=== PATIENT | male | born 2000 | race Caucasian/White ===

== ENCOUNTER 2019-12-30 21:01 | Emergency (ER) | payer OTHER ==
[~2019-12-30] VITALS: Ht 182.9 cm; Wt 90.7 kg
--- OUTSIDE RECORDS SUMMARY | ~2019-12-30 | XMS ---
Demographics + + + | Address | [facility] [address] | | | [place] [address] | + + + | Home Phone | | + + + | Preferred Language | Unknown | + + + | Marital Status | Never | + + + | Hindu Affiliation | Unknown | + + + | Race | White | + + + | Ethnic Group | Not or | + + + Author + + + | Author | [facility] | + + + | Organization | [facility] | + + + | Address | [address] | | | [place] [address] | + + + | Phone | | + + + Care Team Providers + + + + | Care Mortgage Field Inspector Name | Role | Phone | + + + + | Myrna Lee PCP | | + + + + | Myrna Lee | PreferredProvider | | + + + + Allergies and Adverse Reactions + + + + | Name | Reaction | Notes | + + + + | NO KNOWN DRUG ALLERGIES | | | + + + + | 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 Medications +--------+ | Active | +--------+ + + + + + + | Name | Start Date | Estimated | SIG | Comments | | | | Completion Date | | | + + + + + + | Zyrtec 10 mg | | | take 1 tablet | | | oral tablet | | | (10 mg) by oral | | | | | | route once | | | | | | daily | | + + + + + + | Fiber Gummies | | | chew 2 tablets | | | 2.5 gram oral | | | by oral route | | | tablet,chewable | | | daily | | + + + + + + | fluoxetine 10 | 08/18/2016 | 11/16/2016 | take 3 capsules | | | mg oral capsule | | | by oral route | | | | | | qhs for 30 days | | + + + + + + | Concerta 36 mg | 10/31/2016 | | take 1 tablet | | | oral tablet | | | (36 mg) by oral | | | extended | | | route once | | | release 24hr | | | daily in the | | | | | | morning | | + + + + + + +---------+ | | +---------+ + + + + + + | Name | Start Date | Expiration Date | SIG | Comments | + + + + + + | omeprazole 20 | 05/04/2012 | 10/31/2012 | take 1 capsule | | | mg oral | | | by oral route 2 | | | capsule,delayed | | | times a day | | | release(DR/EC) | | | | | + + + + + + | Zithromax 250 | 09/06/2014 | 09/11/2014 | take 2 tablets | | | mg oral tablet | | | (500 mg) by | | | | | | oral route once | | | | | | daily for 1 | | | | | | day then 1 | | | | | | tablet (250 mg) | | | | | | by oral route | | | | | | once daily for | | | | | | 4 days | | + + + + + + | benzonatate 200 | 09/06/2014 | 09/13/2014 | take 1 capsule | | | mg oral | | | (200 mg) by | | | capsule | | | oral route 3 | | | | | | times per day | | | | | | as needed for 7 | | | | | | days | | + + + + + + | prednisone 20 | 09/06/2014 | 09/11/2014 | take 3 tablets | | | mg oral tablet | | | by oral route | | | | | | daily for 5 | | | | | | days | | + + + + + + | lorazepam 1 mg | 11/06/2014 | 11/07/2014 | take 1 tablet | called to pharm | | oral tablet | | | by oral route | | | | | | once take one | | | | | | pill before | | | | | | flying | | + + + + + + | Concerta 18 mg | 08/18/2016 | 09/17/2016 | take 1 tablet | | | oral tablet | | | (18 mg) by oral | | | extended | | | route once | | | release 24hr | | | daily in the | | | | | | morning for two | | | | | | weeks, then | | | | | | take two | | | | | | tablets (36 mg) | | | | | | po qam | | + + + + + + + + | Discontinued | + + + + + + + + | Name | Start Date | Discontinued | SIG | Comments | | | | Date | | | + + + + + + | Zantac 75 75 mg | | 05/04/2012 | take 1 tablet | | | oral tablet | | | (75 mg) by oral | | | | | | route once | | | | | | daily with a | | | | | | glass of water | | + + + + + + Problem List + +--------+ + | Description | Status | Onset | + +--------+ + | Obesity | Active | 02/25/2011 | + +--------+ + | Gastroesophageal reflux | Active | 04/22/2012 | + +--------+ + | ADHD, 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 | 179 | 72. | | 23. | 2.0 | 78. | | | /20 | 45: | | mmH | bpm | rpm | 2 F | | 8 | | 75 | 4 | 3 % | | | 17 | 00 | mmH | g | | | | lbs | in | | kg/ | m2 | | | | | AM | g | | | | | | | | m2 | | | | +-----+-----+-----+-----+-----+-----+-----+-----+-----+----+-----+-----+-----+-----+ | 4/3 | 11: | 108 | 60 | 88 | 30 | 98. | 180 | 72. | | 23. | 2.0 | 79. | 98 | | /20 | 49: | | mmH | bpm | rpm | 3 F | | 75 | | 911 | 472 | 9 % | % | | 17 | 00 | mmH | g | | | | lbs | in | | 4 | | | | | | AM | g | | | | | | | | kg/ | m | | | | | | | | | | | | | | m | | | | +-----+-----+-----+-----+-----+-----+-----+-----+-----+----+-----+-----+-----+-----+ | 2/1 | 11: | 126 | 78 | 80 | 18 | 98. | 175 | | | | | | | | 6/2 | 35: | | mmH | bpm | rpm | 6 F | | | | | | | | | 017 | 00 | mmH | g | | | | lbs | | | | | | | | | AM | g | | | | | | | | | | | | +-----+-----+-----+-----+-----+-----+-----+-----+-----+----+-----+-----+-----+-----+ | 2/7 | 2:2 | 110 | 60 | 83 | 20 | 98. | 177 | 72. | | 23. | 2.0 | 79. | 98 | | /20 | 0:0 | | mmH | bpm | rpm | 4 F | | 5 | | 675 | 265 | 1 % | % | | 17 | 0 | mmH | g | | | | lbs | in | | 3 | | | | | | PM | g | | | | | | | | kg/ | m | | | | | | | | | | | | | | m | | | | +-----+-----+-----+-----+-----+-----+-----+-----+-----+----+-----+-----+-----+-----+ | 10/ | 9:2 | 108 | 72 | 69 | 28 | 97. | 175 | | | | | | 98 | | 4/2 | 3:0 | | mmH | bpm | rpm | 9 F | | | | | | | % | | 016 | 0 | mmH | g | | | | lbs | | | | | | | | | AM | g | | | | | | | | | | | | +-----+-----+-----+-----+-----+-----+-----+-----+-----+----+-----+-----+-----+-----+ | 9/7 | 2:2 | 108 | 70 | 85 | 30 | 99. | 177 | 72. | | 23. | 2.0 | 81. | 98 | | /20 | 6:0 | | mmH | bpm | rpm | 9 F | .5 | 5 | | 742 | 294 | 6 % | % | | 16 | 0 | mmH | g | | | | lbs | in | | 2 | | | | | | PM | g | | | | | | | | kg/ | m | | | | | | | | | | | | | | m | | | | +-----+-----+-----+-----+-----+-----+-----+-----+-----+----+-----+-----+-----+-----+ | 8/1 | 1:5 | 110 | 60 | 60 | 22 | 99. | 177 | 72. | | 23. | 2.0 | 81. | | | 1/2 | 0:0 | | mmH | bpm | rpm | 2 F | | 5 | | 68 | 3 | 5 % | | | 016 | 0 | mmH | g | | | | lbs | in | | kg/ | m2 | | | | | PM | g | | | | | | | | m2 | | | | +-----+-----+-----+-----+-----+-----+-----+-----+-----+----+-----+-----+-----+-----+ | 7/9 | 3:1 | 120 | 60 | 106 | 24 | 98. | 190 | 71. | | 25. | 2.0 | 93. | | | /20 | 5:0 | | mmH | | rpm | 2 F | | 7 | | 984 | 88 | 5 % | | | 15 | 0 | mmH | g | bpm | | | lbs | in | | 5 | m | | | | | PM | g | | | | | | | | kg/ | | | | | | | | | | | | | | | m | | | | +-----+-----+-----+-----+-----+-----+-----+-----+-----+----+-----+-----+-----+-----+ | 4/2 | 9:2 | 112 | 70 | 92 | 26 | 98. | 186 | | | | | | 97 | | 2/2 | 2:0 | | mmH | bpm | rpm | 2 F | | | | | | | % | | 015 | 0 | mmH | g | | | | lbs | | | | | | | | | AM | g | | | | | | | | | | | | +-----+-----+-----+-----+-----+-----+-----+-----+-----+----+-----+-----+-----+-----+ | 4/2 | 9:3 | | | | | | 184 | 72 | | 24. | 2.0 | 91. | | | 0/2 | 1:0 | | | | | | | in | | 954 | 591 | 4 % | | | 015 | 0 | | | | | | lbs | | | 6 | | | | | | AM | | | | | | | | | kg/ | m | | | | | | | | | | | | | | m | | | | +-----+-----+-----+-----+-----+-----+-----+-----+-----+----+-----+-----+-----+-----+ | 8/2 | 1:0 | 116 | 60 | 80 | 16 | 98. | 171 | 69. | | 25. | 1.9 | 94. | 98 | | 8/2 | 5:0 | | mmH | bpm | rpm | 8 F | | 25 | | 07 | 5 | 6 % | % | | 013 | 0 | mmH | g | | | | lbs | in | | kg/ | m2 | | | | | PM | g | | | | | | | | m2 | | | | +-----+-----+-----+-----+-----+-----+-----+-----+-----+----+-----+-----+-----+-----+ | 12/ | 2:3 | | | 85 | 18 | 98. | 184 | | | | | | 98 | | 18/ | 8:0 | | | bpm | rpm | 9 F | | | | | | | % | | 201 | 0 | | | | | | lbs | | | | | | | | 2 | PM | | | | | | | | | | | | | +-----+-----+-----+-----+-----+-----+-----+-----+-----+----+-----+-----+-----+-----+ | 12/ | 9:2 | 130 | 72 | 79 | 20 | 98. | 181 | 67 | | 28. | 1.9 | 98. | 98 | | 5/2 | 6:0 | | mmH | bpm | rpm | 5 F | .5 | in | | 426 | 728 | 1 % | % | | 012 | 0 | mmH | g | | | | lbs | | | 6 | | | | | | AM | g | | | | | | | | kg/ | m | | | | | | | | | | | | | | m | | | | +-----+-----+-----+-----+-----+-----+-----+-----+-----+----+-----+-----+-----+-----+ | 10/ | 4:0 | 112 | 60 | 89 | 16 | 98. | 166 | 62. | | 30. | 1.8 | 98. | 98 | | 11/ | 5:0 | | mmH | bpm | rpm | 5 F | | 3 | | 07 | 2 | 9 % | % | | 201 | 0 | mmH | g | | | | lbs | in | | kg/ | m2 | | | | 1 | PM | g | | | | | | | | m2 | | | | +-----+-----+-----+-----+-----+-----+-----+-----+-----+----+-----+-----+-----+-----+ | 12/ | 9:2 | 112 | 60 | 80 | 16 | 98. | 136 | | | | | | | | 6/2 | 6:0 | | mmH | bpm | rpm | 4 F | | | | | | | | | 010 | 0 | mmH | g | | | | lbs | | | | | | | | | AM | g | | | | | | | | | | | | +-----+-----+-----+-----+-----+-----+-----+-----+-----+----+-----+-----+-----+-----+ Social History + + + + | Name | Description | Comments | + + + + | Lives With | | [place] | + + + + | In ninth grade | | | + + + + | Exercises Daily | | - [employer] 12/27/2015 | + + + + | In High School | | - [employer] 12/27/2015 | + + + + | Tobacco | Never smoker | | + + + + History of Procedures + + + + | Date Ordered | Description | Order Status | + + + + | 02/25/2011 12:00 AM | TDAP VACCINE 7 YRS/> IM | Reviewed | + + + + | 02/25/2011 12:00 AM | FLU VACCINE NASAL | Reviewed | + + + + | 02/25/2011 12:00 AM | MENINGOCOCCAL VACCINE IM | Reviewed | + + + + | 02/25/2011 12:00 AM | IMMUNE ADMIN ORAL/NASAL | Reviewed | | | ADDL | | + + + + | 02/25/2011 12:00 AM | IMMUNIZATION ADMIN EACH ADD | Reviewed | + + + + | 02/25/2011 12:00 AM | IMMUNIZATION ADMIN | Reviewed | + + + + | 02/25/2011 12:00 AM | X-RAY EXAM TRUNK SPINE 2 | Reviewed | | | VWS | | + + + + | 09/04/2014 12:00 AM | IAAEVANSO STREPTOCOCCUS | Reviewed | | | GROUP A | | + + + + | 09/04/2014 12:00 AM | CULTURE SCREEN ONLY | Reviewed | + + + + | 04/22/2012 12:00 AM | URINALYSIS NONAUTO W/O | Reviewed | | | SCOPE | | + + + + | 04/21/2012 12:00 AM | COMPLETE CBC W/AUTO DIFF | Reviewed | | | WBC | | + + + + | 04/21/2012 12:00 AM | COMPREHEN METABOLIC PANEL | Reviewed | + + + + | 04/21/2012 12:00 AM | RBC SED RATE NONAUTOMATED | Reviewed | + + + + | 04/21/2012 12:00 AM | C-REACTIVE PROTEIN | Reviewed | + + + + | 04/21/2012 12:00 AM | VITAMIN D 25 HYDROXY | Reviewed | + + + + | 04/21/2012 12:00 AM | X-RAY EXAM OF ABDOMEN | Reviewed | + + + + | 04/21/2012 12:00 AM | X-RAY UPPER GI DELAY W/O | Reviewed | | | KUB | | + + + + | 09/06/2014 12:00 AM | MEASURE BLOOD OXYGEN LEVEL | Reviewed | + + + + | 11/23/2014 12:00 AM | VISUAL ACUITY SCREEN | Reviewed | + + + + | 05/04/2012 12:00 AM | FLU VACCINE NASAL | Reviewed | + + + + | 05/04/2012 12:00 AM | IMMUNE ADMIN ORAL/NASAL | Reviewed | + + + + | 03/22/2015 12:00 AM | FLU VACCINE 4 VALENT NASAL | Reviewed | + + + + | 03/22/2015 12:00 AM | IMMUNE ADMIN ORAL/NASAL | Reviewed | + + + + | 01/12/2013 12:00 AM | VISUAL ACUITY SCREEN | Reviewed | + + + + | 01/12/2013 12:00 AM | IMMUNIZATION ADMIN | Reviewed | + + + + | 12/27/2015 12:00 AM | MENINGOCOCCAL VACCINE IM | Reviewed | + + + + | 12/27/2015 12:00 AM | HPV VACCINE 4 VALENT IM | Reviewed | + + + + | 12/27/2015 12:00 AM | IMMUNIZATION ADMIN | Reviewed | + + + + | 12/27/2015 12:00 AM | IMMUNIZATION ADMIN EACH ADD | Reviewed | + + + + | 12/27/2015 12:00 AM | Meningococcal B (P) | Reviewed | + + + + | 12/27/2015 12:00 AM | X-RAY EXAM OF ANKLE | Reviewed | + + + + | 01/23/2016 12:00 AM | CHEST X-RAY 2VW | Reviewed | | | FRONTAL&LATL | | + + + + | 02/19/2016 12:00 AM | FLU VAC NO PRSV 4 IVONE 3 | Reviewed | | | YRS+ | | + + + + | 02/19/2016 12:00 AM | HPV VACCINE NON VALENT IM | Reviewed | + + + + | 02/19/2016 12:00 AM | IMMUNIZATION ADMIN | Reviewed | + + + + | 02/19/2016 12:00 AM | IMMUNIZATION ADMIN EACH ADD | Reviewed | + + + + | 06/24/2016 12:00 AM | IMMUNIZATION ADMIN | Reviewed | + + + + | 06/24/2016 12:00 AM | Meningococcal B (P) | Reviewed | + + + + | 07/03/2016 12:00 AM | IMMUNIZATION ADMIN | Reviewed | + + + + | 07/03/2016 12:00 AM | HPV VACCINE NON VALENT IM | Reviewed | + + + + | 01/12/2013 12:00 AM | FLU VACCINE 4 VALENT NASAL | Reviewed | + + + + | 04/22/2010 12:00 AM | CT ABDOMEN W/DYE | Reviewed | + + + + | 04/21/2012 12:00 AM | FLUORESCENT ANTIBODY SCREEN | Reviewed | + + + + | 04/21/2012 12:00 AM | FLUORESCENT ANTIBODY TITER | Reviewed | + + + + | 04/21/2012 12:00 AM | ALLERGEN SPECIFIC IGE | Reviewed | + + + + | 04/21/2012 12:00 AM | IMMUNOASSAY NONANTIBODY | Reviewed | + + + + | 03/27/2010 12:00 AM | FLU VACCINE NASAL | Reviewed | + + + + | 03/27/2010 12:00 AM | IMMUNE ADMIN ORAL/NASAL | Reviewed | + + + + Results Summary + + + | Date and Description | Results | + + + | 04/22/2012 3:25 PM | SODIUM 138 POTASSIUM 4.6 CHLORIDE 103 | | | CARBON DIOXIDE 24 ANION GAP 15.6 GLUCOSE | | | 87 UREA NITROGEN 14 CREATININE, SERUM 0.62 | | | GFR ESTIMATION NOT PERFORMED | | | BUN/CREAT.RATIO 22.6 CALCIUM 10.3 | | | AST(SGOT) 17 ALT(SGPT) 16 ALKALINE PHOS | | | 333 BILIRUBIN, TOTAL 0.2 PROTEIN 7.4 | | | ALBUMIN 5.1 GLOBULIN 2.3 A/G RATIO 2.2 | | | C-REACTIVE PROT <5 IMMUNOGLOBULIN G 872 | | | IMMUNOGLOBULIN A 104 VITAMIN D 25-OH 28 | | | WBC 7.9 RBC 4.89 HEMOGLOBIN 13.9 | | | HEMATOCRIT 42.2 MCV 86.3 RDW 13.6 MCH 28 | | | MCHC 33 PLATELET COUNT 415 NEUTROPHILS | | | 54.7 LYMPHOCYTES 40.8 MONOCYTES 3.4 | | | EOSINOPHILS 0.8 BASOPHILS 0.3 ESR 7 BANANA | | | <0.1 BARLEY <0.1 CHOCOLATE <0.1 CORN <0.1 | | | EGG WHITE <0.1 MILK, COWS <0.1 OAT <0.1 | | | ORANGE <0.1 PEA <0.1 PEANUT <0.1 PORK <0.1 | | | POTATO <0.1 RICE <0.1 RYE <0.1 SOYBEAN | | | <0.1 STRAWBERRY <0.1 TOMATO <0.1 WHEAT | | | <0.1 IZQUIERDO, WHITE-NAVY <0.1 tTG SCREEN 3 | | | ENDOMYSIAL IgA NOT DONE RETICULIN SCREEN | | | <1:5 RETICULIN AB, IgA Not Done GLIADIN | | | AB, IgG 3 GLIADIN AB, IgA 3 | + + + | 09/04/2014 12:00 AM | RESULT #1 No Group A beta streptococcus | | | after overnight incu RESULT #2 No Group A | | | beta streptococcus after further incuba | + + + History Of Immunizations +-------+-------+-------+------+-------+-------+-------+-------+-------+-------+-----+ | Name | Date | Mfg | Mfg | Trade | Lot# | Route | Inj | Vis | Vis | CVX | | | Admin | Name | Code | Name | | | | Given | Pub | | +-------+-------+-------+------+-------+-------+-------+-------+-------+-------+-----+ | DTaP | 01/02/ | Not | NE | Not | | Not | Not | | | 999 | | | 2000 | Enter | | Enter | | Enter | Enter | 001 | 001 | | | | | ed | | ed | | ed | ed | | | | +-------+-------+-------+------+-------+-------+-------+-------+-------+-------+-----+ | DTaP | 02/20/ | Not | NE | Not | | Not | Not | | | 999 | | | 2000 | Enter | | Enter | | Enter | Enter | 001 | 001 | | | | | ed | | ed | | ed | ed | | | | +-------+-------+-------+------+-------+-------+-------+-------+-------+-------+-----+ | DTaP | 04/22/ | Not | NE | Not | | Not | Not | | | 999 | | | 2000 | Enter | | Enter | | Enter | Enter | 001 | 001 | | | | | ed | | ed | | ed | ed | | | | +-------+-------+-------+------+-------+-------+-------+-------+-------+-------+-----+ | DTaP | 02/10/ | Not | NE | Not | | Not | Not | | | 999 | | | 2001 | Enter | | Enter | | Enter | Enter | 001 | 001 | | | | | ed | | ed | | ed | ed | | | | +-------+-------+-------+------+-------+-------+-------+-------+-------+-------+-----+ | DTaP | 02/15/ | Not | NE | Not | | Not | Not | | | 999 | | | 2004 | Enter | | Enter | | Enter | Enter | 001 | 001 | | | | | ed | | ed | | ed | ed | | | | +-------+-------+-------+------+-------+-------+-------+-------+-------+-------+-----+ | Hib | 01/02/ | Not | NE | Not | | Not | Not | | | 999 | | | 2000 | Enter | | Enter | | Enter | Enter | 001 | 001 | | | | | ed | | ed | | ed | ed | | | | +-------+-------+-------+------+-------+-------+-------+-------+-------+-------+-----+ | Hib | 02/20/ | Not | NE | Not | | Not | Not | | | 999 | | | 2000 | Enter | | Enter | | Enter | Enter | 001 | 001 | | | | | ed | | ed | | ed | ed | | | | +-------+-------+-------+------+-------+-------+-------+-------+-------+-------+-----+ | Hib | 04/22/ | Not | NE | Not | | Not | Not | | | 999 | | | 2000 | Enter | | Enter | | Enter | Enter | 001 | 001 | | | | | ed | | ed | | ed | ed | | | | +-------+-------+-------+------+-------+-------+-------+-------+-------+-------+-----+ | Hib | 11/12/ | Not | NE | Not | | Not | Not | | | 999 | | | 2001 | Enter | | Enter | | Enter | Enter | 001 | 001 | | | | | ed | | ed | | ed | ed | | | | +-------+-------+-------+------+-------+-------+-------+-------+-------+-------+-----+ | HepB | 04/22/ | Not | NE | Not | | Not | Not | | | 999 | | | 2000 | Enter | | Enter | | Enter | Enter | 001 | 001 | | | | | ed | | ed | | ed | ed | | | | +-------+-------+-------+------+-------+-------+-------+-------+-------+-------+-----+ | HepB | | Not | NE | Not | | Not | Not | | | 999 | | | 001 | Enter | | Enter | | Enter | Enter | 001 | 001 | | | | | ed | | ed | | ed | ed | | | | +-------+-------+-------+------+-------+-------+-------+-------+-------+-------+-----+ | HepB | 02/10/ | Not | NE | Not | | Not | Not | | | 999 | | | 2001 | Enter | | Enter | | Enter | Enter | 001 | 001 | | | | | ed | | ed | | ed | ed | | | | +-------+-------+-------+------+-------+-------+-------+-------+-------+-------+-----+ | IPV | 01/02/ | Not | NE | Not | | Not | Not | | | 999 | | | 2000 | Enter | | Enter | | Enter | Enter | 001 | 001 | | | | | ed | | ed | | ed | ed | | | | +-------+-------+-------+------+-------+-------+-------+-------+-------+-------+-----+ | IPV | 02/20/ | Not | NE | Not | | Not | Not | | | 999 | | | 1999 | Enter | | Enter | | Enter | Enter | 001 | 001 | | | | | ed | | ed | | ed | ed | | | | +-------+-------+-------+------+-------+-------+-------+-------+-------+-------+-----+ | IPV | 02/10/ | Not | NE | Not | | Not | Not | | | 999 | | | 2000 | Enter | | Enter | | Enter | Enter | 001 | 001 | | | | | ed | | ed | | ed | ed | | | | +-------+-------+-------+------+-------+-------+-------+-------+-------+-------+-----+ | IPV | 02/15/ | Not | NE | Not | | Not | Not | | | 999 | | | 2004 | Enter | | Enter | | Enter | Enter | 001 | 001 | | | | | ed | | ed | | ed | ed | | | | +-------+-------+-------+------+-------+-------+-------+-------+-------+-------+-----+ | MMR | 11/12/ | Not | NE | Not | | Not | Not | | | 999 | | | 2000 | Enter | | Enter | | Enter | Enter | 001 | 001 | | | | | ed | | ed | | ed | ed | | | | +-------+-------+-------+------+-------+-------+-------+-------+-------+-------+-----+ | MMR | 02/15/ | Not | NE | Not | | Not | Not | | | 999 | | | 2003 | Enter | | Enter | | Enter | Enter | 001 | 001 | | | | | ed | | ed | | ed | ed | | | | +-------+-------+-------+------+-------+-------+-------+-------+-------+-------+-----+ | Varic | 11/12/ | Not | NE | Not | | Not | Not | | | 999 | | roly | 2000 | Enter | | Enter | | Enter | Enter | 001 | 001 | | | | | ed | | ed | | ed | ed | | | | +-------+-------+-------+------+-------+-------+-------+-------+-------+-------+-----+ | Varic | 04/08 | Not | NE | Not | | Not | Not | | | 999 | | roly | /2005 | Enter | | Enter | | Enter | Enter | 001 | 001 | | | | | ed | | ed | | ed | ed | | | | +-------+-------+-------+------+-------+-------+-------+-------+-------+-------+-----+ | Hep A | | Not | NE | Not | | Not | Not | | | 999 | | | 002 | Enter | | Enter | | Enter | Enter | 001 | 001 | | | | | ed | | ed | | ed | ed | | | | +-------+-------+-------+------+-------+-------+-------+-------+-------+-------+-----+ | Hep A | 07/26/ | Not | NE | Not | | Not | Not | | | 999 | | | 2003 | Enter | | Enter | | Enter | Enter | 001 | 001 | | | | | ed | | ed | | ed | ed | | | | +-------+-------+-------+------+-------+-------+-------+-------+-------+-------+-----+ | Prevn | 04/22/ | Not | NE | Not | | Not | Not | | | 999 | | ar | 2000 | Enter | | Enter | | Enter | Enter | 001 | 001 | | | | | ed | | ed | | ed | ed | | | | +-------+-------+-------+------+-------+-------+-------+-------+-------+-------+-----+ | Prevn | | Not | NE | Not | | Not | Not | | | 999 | | ar | 001 | Enter | | Enter | | Enter | Enter | 001 | 001 | | | | | ed | | ed | | ed | ed | | | | +-------+-------+-------+------+-------+-------+-------+-------+-------+-------+-----+ | Prevn | | Not | NE | Not | | Not | Not | | | 999 | | ar | 001 | Enter | | Enter | | Enter | Enter | 001 | 001 | | | | | ed | | ed | | ed | ed | | | | +-------+-------+-------+------+-------+-------+-------+-------+-------+-------+-----+ | Prevn | 02/10/ | Not | NE | Not | | Not | Not | | | 999 | | ar | 2001 | Enter | | Enter | | Enter | Enter | 001 | 001 | | | | | ed | | ed | | ed | ed | | | | +-------+-------+-------+------+-------+-------+-------+-------+-------+-------+-----+ | Flu | 02/15/ | Not | NE | Not | | Not | Not | | | 999 | | 3+ | 2002 | Enter | | Enter | | Enter | Enter | 001 | 001 | | | years | | ed | | ed | | ed | ed | | | | +-------+-------+-------+------+-------+-------+-------+-------+-------+-------+-----+ | FluMi | 02/27 | Not | NE | Not | | Not | Not | | | 999 | | st | | Enter | | Enter | | Enter | Enter | 001 | 001 | | | | | ed | | ed | | ed | ed | | | | +-------+-------+-------+------+-------+-------+-------+-------+-------+-------+-----+ | FluMi | 03/27 | [facility] | MED | Flu-N | [id number] | Intra | None | 03/27 | 12/25/ | 999 | | st | | mune, | | ulices | 6P | nasal | | | 2009 | | | | | Inc. | | | | | | | | | +-------+-------+-------+------+-------+-------+-------+-------+-------+-------+-----+ | HepB | 05/09 | Not | NE | Not | | Not | Not | | | 999 | | | /1999 | Enter | | Enter | | Enter | Enter | 001 | 001 | | | | | ed | | ed | | ed | ed | | | | +-------+-------+-------+------+-------+-------+-------+-------+-------+-------+-----+ | FluMi | 02/25 | [facility] | MED | Flu-N | [id number] | Intra | None | 02/25 | 12/10/ | 999 | | st | | mune, | | ulices | 6P | nasal | | | 2010 | | | | | Inc. | | | | | | | | | +-------+-------+-------+------+-------+-------+-------+-------+-------+-------+-----+ | Menac | 02/25 | sanof | PMC | Menac | [id number] | Intra | Left | 02/25 | 06/14/ | 999 | | tra | | i | | tra | AA | muscu | Delto | | 2008 | | | | | paste | | | | lar | id | | | | | | | ur | | | | | | | | | +-------+-------+-------+------+-------+-------+-------+-------+-------+-------+-----+ | Tdap | 02/25 | Glaxo | SKB | BOOST | [id number] | Intra | Right | 02/25 | 04/04 | 999 | | | | Talbert | | TESS | | muscu | | /2010 | | | | | | Porter | | | [id number] | lar | Delto | | | | | | | | | | | | id | | | | +-------+-------+-------+------+-------+-------+-------+-------+-------+-------+-----+ | FluMi | 05/04 | [facility] | MED | Flu-N | [id number] | Intra | None | 05/04 | | 111 | | st | | mune, | | ulices | 9 | nasal | | | 012 | | | | | Inc. | | | | | | | | | +-------+-------+-------+------+-------+-------+-------+-------+-------+-------+-----+ | FluMi | 01/12/ | [facility] | MED | Flu-N | [id number] | Intra | None | 01/12/ | 12/10/ | 111 | | st | 2012 | mune, | | ulices | 9 | nasal | | 2012 | 2012 | | | | | Inc. | | | | | | | | | +-------+-------+-------+------+-------+-------+-------+-------+-------+-------+-----+ | FluMi | 03/22/ | [facility] | MED | FluMi | [id number] | Intra | None | 03/22/ | | 149 | | st | 2014 | mune, | | st | 5 | nasal | | 2015 | 015 | | | | | Inc. | | Quadr | | | | | | | | | | | | ivale | | | | | | | | | | | | nt | | | | | | | +-------+-------+-------+------+-------+-------+-------+-------+-------+-------+-----+ | Menac | 12/26/ | sanof | PMC | Menac | [id number] | Intra | Right | 12/26/ | 08/15/ | 136 | | tra | 2015 | i | | tra | BB | muscu | | 2015 | 2015 | | | | | paste | | | | lar | Upper | | | | | | | ur | | | | | | | | | | | | | | | | | Delto | | | | | | | | | | | | id | | | | +-------+-------+-------+------+-------+-------+-------+-------+-------+-------+-----+ | HPV | 12/26/ | Merck | MSD | GARDA | [id number] | Intra | Left | 12/26/ | 10/01/ | 62 | | | 2015 | & | | ROXY | 66 | muscu | Upper | 2015 | 2012 | | | | | Co., | | | | lar | | | | | | | | Inc. | | | | | Delto | | | | | | | | | | | | id | | | | +-------+-------+-------+------+-------+-------+-------+-------+-------+-------+-----+ | Trume | 12/26/ | Pfize | PFR | Trume | [id number] | Intra | Not | 12/26/ | 12/29/ | 162 | | delicia | 2015 | r, | | delicia | 1 | muscu | Enter | 2015 | 2015 | | | MenB | | Inc. | | | | lar | ed | | | | +-------+-------+-------+------+-------+-------+-------+-------+-------+-------+-----+ | Flu | 02/18/ | sanof | PMC | Fluzo | [id number] | Intra | Right | 02/18/ | | 150 | | 3+ | 2015 | i | | ne | 6MA | muscu | | 2015 | 015 | | | years | | paste | | Quadr | | lar | Delto | | | | | | | ur | | ivale | | | id | | | | | | | | | nt | | | | | | | +-------+-------+-------+------+-------+-------+-------+-------+-------+-------+-----+ | HPV | 02/18/ | Merck | MSD | Garda | [id number] | Intra | Left | 02/18/ | 08/15/ | 165 | | | 2016 | & | | roxy 9 | 69 | muscu | Delto | 2015 | 2016 | | | | | Co., | | | | lar | id | | | | | | | Inc. | | | | | | | | | +-------+-------+-------+------+-------+-------+-------+-------+-------+-------+-----+ | Trume | | Pfize | PFR | Trume | [id number] | Intra | Left | | 12/29/ | 162 | | delicia | 017 | r, | | delicia | 6 | muscu | Upper | 017 | 2014 | | | MenB | | Inc. | | | | lar | | | | | | | | | | | | | Delto | | | | | | | | | | | | id | | | | +-------+-------+-------+------+-------+-------+-------+-------+-------+-------+-----+ | HPV | 07/03/ | Merck | MSD | Garda | [id number] | Intra | Right | 07/03/ | 08/15/ | 165 | | | 2017 | & | | roxy 9 | 59 | muscu | | 2017 | 2016 | | | | | Co., | | | | lar | Upper | | | | | | | Inc. | | | | | | | | | | | | | | | | | Delto | | | | | | | | | | | | id | | | | +-------+-------+-------+------+-------+-------+-------+-------+-------+-------+-----+ History of Past Illness + + + + | Name | Date of Onset | Comments | + + + + | Influenza Nasal | Mar 27 2010 3:25PM | | + + + + | Abdominal pain, right lower | Apr 22 2010 9:29AM | | | quadrant | | | + + + + | Pneumonia | | | + + + + | Otitis Media, Acute | | | + + + + | Strep Throat | | | + + + + | Vision problems | | | + + + + | Appendicitis, Acute | | | + + + + | Obesity | 02/25/2011 | | + + + + | ADOL TDAP 10 UP | Feb 25 2011 4:10PM | | + + + + | Influenza Nasal | Feb 25 2011 4:10PM | | + + + + | Menactra 11 & UP | Feb 25 2011 4:10PM | | + + + + | Back Sprain/Strain | Feb 25 2011 4:10PM | | + + + + | Obesity | Feb 25 2011 4:10PM | | + + + + | Gastroesophageal reflux | 04/22/2012 | | + + + + | Abdominal Pain, LLQ | 04/22/2012 | | + + + + | Abdominal Pain, RLQ | 04/22/2012 | | + + + + | Abdominal Pain, RLQ | Apr 21 2012 9:27AM | | + + + + | Abdominal Pain, LLQ | Apr 21 2012 9:27AM | | + + + + | Gastroesophageal Reflux | Apr 21 2012 9:27AM | | + + + + | Influenza Nasal | May 04 2012 8:43AM | | + + + + | Gastroesophageal Reflux | May 04 2012 8:43AM | | + + + + | ADHD, 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 | | + + + + | Well Child Check | Jan 12 2013 11:37AM | | + + + + | Vision Screening | Jan 12 2013 11:37AM | | + + + + | Influenza Nasal | Jan 12 2013 11:37AM | | + + + + | Pharyngitis, Acute | Sep 04 2014 9:22AM | | + + + + | Croup | Sep 06 2014 9:19AM | | + + + + | Sinusitis, Acute | Sep 06 2014 9:19AM | | + + + + | Well Child Check | Nov 23 2014 3:07PM | | + + + + | Vision Screening | Nov 23 2014 3:07PM | | + + + + | Influenza Nasal | Mar 22 2015 3:51PM | | + + + + | Need for meningococcus | Dec 27 2015 1:50PM | | | vaccine | | | + + + + | Need for Menactra | Dec 27 2015 1:50PM | | | vaccination | | | + + + + | Need for HPV vaccine | Dec 27 2015 1:50PM | | + + + + | Ankle strain, left, initial | Dec 27 2015 1:50PM | | | encounter | | | + + + + | Acute depression | Jan 23 2016 2:13PM | | + + + + | Chest wall asymmetry | Jan 23 2016 2:13PM | | + + + + | Influenza 3 Yr and up | Feb 19 2016 9:18AM | | + + + + | HPV 9 | Feb 19 2016 9:18AM | | + + + + | Depression | Feb 19 2016 9:18AM | | + + + + | Sleep Disorder | Feb 19 2016 9:18AM | | + + + + | Andreinanba | Jun 24 2016 2:16PM | | + + + + | Depression | Jun 24 2016 2:16PM | | + + + + | HPV9 | Jul 03 2016 11:27AM | | + + + + | Acute depression | Jul 03 2016 11:27AM | | + + + + | Sleep Disorder | Jul 03 2016 11:27AM | | + + + + | ADD (attention deficit | Aug 18 2016 11:40AM | | | hyperactivity disorder, | | | | inattentive type) | | | + + + + | Acute depression | Aug 18 2016 11:40AM | | + + + + | Difficulty sleeping | Aug 18 2016 11:40AM | | + + + + | ADHD, inattentive type | Sep 18 2016 11:34AM | | + + + + Payers + + + +--------+ +---------+ + | Insurance | Company | Plan Name | Plan | Policy | Policy | Start Date | | Name | Name | | Number | Number | Group | | | | | | | | Number | | + + + +--------+ +---------+ + | | Moda | Moda | | [id number] | | Thursday, | | | Health | Health | | | | June | | | | | | | | 2016 | + + + +--------+ +---------+ + | | Blue | Blue Card | | [id number] | | , | | | Cross | In State | | 46 | | February | | | Blue | 1 | | | | 2009 | | | Shield | | | | | | + + + +--------+ +---------+ + | | Blue | Blue Card | | [id number] | | N/A | | | Cross | In State | | 46 | | | | | Blue | 1 | | | | | | | Shield | | | | | | + + + +--------+ +---------+ + | | [place] | [employer] | | [id number] | | Thursday, | | | Source | Source | | | | December | | | Health | Health [place] | | | | 2012 | | | Plan | | | | | | + + + +--------+ +---------+ + | | Mod[employer] | Moda | | [id number] | | Thursday, | | | Health | Health | | | | February | | | | | | | | 2013 | + + + +--------+ +---------+ + History of Encounters + + + + | Visit Date | Visit Type | Provider | + + + + | 09/18/2016 | Consult | Myrna Lee MD | + + + + | 08/18/2016 | Consult | Myrna Lee MD | + + + + | 07/03/2016 | Consult | Myrna Lee MD | + + + + | 06/24/2016 | Consult | Gayla KEITH | + + + + | 02/19/2016 | Consult | Gayla KEITH | + + + + | 01/23/2016 | Consult | | + + + + | 01/23/2016 | Consult | Gayla KEITH | + + + + | 12/27/2015 | Acute Illness | | + + + + | 12/27/2015 | Acute Illness | Gayla KEITH | + + + + | 03/22/2015 | Walk In | Nurse Nurse | + + + + | 11/23/2014 | Well Child Check | Gayla KEITH | + + + + | 09/06/2014 | Acute Illness | Gayla KEITH | + + + + | 09/04/2014 | Walk In | Nurse Nurse | + + + + | 01/12/2013 | Well Child Check | Gayla RamosMing KEITH | + + + + | 05/04/2012 | Office Visit | Myrna Lee MD | + + + + | 04/21/2012 | Consult | | + + + + | 04/21/2012 | Consult | Myrna Lee MD | + + + + | 02/25/2011 | Office Visit | Myrna Lee MD | + + + + | 04/22/2010 | Acute Illness | Myrna Lee MD | + + + + | 03/27/2010 | Walk In | Nurse Nurse | + + + +"
--- OUTSIDE RECORDS SUMMARY | ~2019-12-30 | XMS ---
Demographics + + + | Address | [address] | | | [place] [address] | + + + | Home Phone | | + + + | Preferred Language | Unknown | + + + | Marital Status | Never | + + + | Baptism Affiliation | Unknown | + + + | Race | White | + + + | Ethnic Group | Not or | + + + Author + + + | Author | [facility] | + + + | Organization | [facility] | + + + | Address | [address] | | | [place] [address] | + + + | Phone | | + + + Care Team Providers + + + + | Care Lease Out Worker Name | Role | Phone | + [...] + + | Concerta 36 mg | 09/18/2016 | 10/18/2016 | take 1 tablet | | | [...] + + | 09/04/2014 12:00 AM | ISHO STREPTOCOCCUS | Reviewed | | | GROUP [...] + Results Summary + + + | Data and Description | Results | + + [...] | | | +-------+-------+-------+------+-------+-------+-------+-------+-------+-------+-----+ | Varic | 11/22 | Not | NE | Not | [...] | | 999 | | 3+ | 2003 | Enter | | Enter | | Enter | Enter | 001 | 001 | | | years | | ed | | ed | | ed | ed | | | | +-------+-------+-------+------+-------+-------+-------+-------+-------+-------+-----+ | FluMi | 02/27 | Not | NE | Not | | Not | Not | | | 999 | | st | /2006 | Enter | | Enter | | Enter | Enter | 001 | 001 | | | | | ed | | ed | | ed | ed | | | | +-------+-------+-------+------+-------+-------+-------+-------+-------+-------+-----+ | FluMi | 03/27 | Medim | MED | Flu-N | [id number] | Intra | None | 03/27 | [...] | | | 999 | | | | Enter | | Enter | | Enter | Enter | 001 | 001 | | | | | ed | | ed | | ed | ed | | | | +-------+-------+-------+------+-------+-------+-------+-------+-------+-------+-----+ | FluMi | 02/25 | Medim | MED | Flu-N | [id number] | Intra | None | 02/25 | [...] AA | muscu | Delto | | 2007 | | | | | paste | [...] | TESS | | muscu | | | | | | | | Porter [...] | | [address] | [address] | 2015 | mune, | | st | 5 [...] | 1 | muscu | Enter | 2016 | 2015 | | | MenB | [...] | | + + + + | Trumenba | Jun 24 2016 2:16PM | | [...] | | Moda | Moda | | [id number] | | Thursday, | | | Health | Health | | | | June | | | | | | | | 2016 | + + + +--------+ +---------+ + | | Blue | Blue Card | | [id number] | | , | | | Cross | In State | | 46 | | February | | | Blue | 1 | | | | 2009 | | | Shield | | | | | | + + + +--------+ +---------+ + | | Blue | Blue Card | | [id number] | | N/A | | | Cross | In State | | 46 | | | | | Blue | 1 | | | | | | | Shield | | | | | | + + + +--------+ +---------+ + | | Iron | Iron | | [id number] | | Thursday, | | | Source | Source | | | | December | | | Health | Health [place] | | | | 2012 | | | Plan | | | | | | + + + +--------+ +---------+ + | | Moda | Moda | | [id number] | | Thursday, | | | Health [...]
--- OUTSIDE RECORDS SUMMARY | ~2019-12-30 | XMS ---
Demographics + + + | Address | [facility] [address] | | | [place] [address] | + + + | Home Phone | | + + + | Preferred Language | Unknown | + + + | Marital Status | Never | + + + | Druze Affiliation | Unknown | + + + | Race | White | + + + | Ethnic Group | Not or | + + + Author + + + | Author | [facility] | + + + | Organization | [facility] | + + + | Address | [address] | | | [place] [address] | + + + | Phone | | + + + Care Team Providers + + + + | Care Bowl Turner Name | Role | Phone | + [...] + + + | fluoxetine 10 | 12/15/2016 | | take 3 capsules | | | [...] 02/25/2011 | + +--------+ + | Gastroesophageal Reflux | Active | 04/22/2012 | + +--------+ [...] + + | Lives With | | mom jesus Beckett | + + + + | In [...] + + | 09/04/2014 12:00 AM | IAADIADOO STREPTOCOCCUS | Reviewed | | | GROUP [...] | Medim | MED | Flu-N | [id number] | Intra | None | 03/27 | [...] | Medim | MED | Flu-N | [id number] | Intra | None | 02/25 | [...] | muscu | Enter | 2015 | 2014 | | | MenB | [...] | 69 | muscu | Delto | 2016 | 2016 | | | | | [...] | + + + + | Strep throat | | | + + + + [...] + + + | Gastroesophageal Reflux | 04/22/2012 | | + + + [...] | | Moda | Moda | | [id number] | | Thursday, | | | Health | Health | | | | June | | | | | | | | 2016 | + + + +--------+ +---------+ + | | Blue | Blue Card | | [id number] | | , | | | Cross | In State | | 46 | | February | | | Blue | 1 | | | | 2009 | | | Shield | | | | | | + + + +--------+ +---------+ + | | Blue | Blue Card | | [id number] | | N/A | | | Cross | In State | | 46 | | | | | Blue | 1 | | | | | | | Shield | | | | | | + + + +--------+ +---------+ + | | [place] | | [id number] | | Thursday, | | | Source | Source | | | | December | | | Health | Health [place] | | | | 2012 | | | Plan | | | | | | + + + +--------+ +---------+ + | | Moda | Moda | | [id number] | | Thursday, | | | Health [...]
[~2019-12-30 21:01] MED LIST: LACTAID3000 UNIT PO; MIRALAX119 GM PO; PRILOSEC20 MG PO
== END 2019-12-31 01:02 | disposition home or self-care (01) ==
LOC: ED 21:01
DX: F12.10 Cannabis abuse, uncomplicated (principal)
CPT/HCPCS: 99283